=== PATIENT | female | born 1965 | race Caucasian/White ===

== ENCOUNTER → 2021-02-28 | Outpatient (CLI) | payer OTHER ==
--- NOTE | 2021-02-28 11:09 | REPVR ---
PROCEDURE INFORMATION: Exam: CT Temporal Bones Without Contrast. Exam date and time: 02/28/2021 10:27 AM Age: 55 years old Clinical indication: Condition or disease; Other: Unspecified perferation tampanic mem TECHNIQUE: Imaging protocol: Computed tomography images of the temporal bones without contrast. Radiation optimization: All CT scans at this facility use at least one of these dose optimization techniques: automated exposure control; mA and/or kV adjustment per patient size (includes targeted exams where dose is matched to clinical indication); or iterative reconstruction. COMPARISON: No relevant prior studies available. FINDINGS: Right inner ear: Normal. Right ossicles and middle ear: There is mild retraction of the right tympanic membrane with minimal soft tissue density in the lower middle ear chamber. No destructive changes are seen. Right external auditory canal: Normal. Right facial nerve canal: Normal. Right jugular foramen: No jugular dehiscence. Right carotid canal: No aberrant carotid canal. Right mastoid air cells: There is opacification of scattered mastoid air cells on the right. Left inner ear: Normal. Left ossicles and middle ear: There is moderate retraction of the left tympanic membrane. There is extensive soft tissue density in the left middle ear extending superiorly to the attic. The ossicles are intact. The left scutum is intact. Left external auditory canal: Normal. Left facial nerve canal: Normal. Left jugular foramen: No jugular dehiscence. Left carotid canal: No aberrant carotid canal. Left mastoid air cells: There is extensive opacification of the left mastoid air cells without destructive bony changes. Soft tissues: Unremarkable. IMPRESSION: 1. There is mild retraction of the right tympanic membrane with minimal soft tissue density in the lower middle ear chamber. No destructive changes are seen. 2. There is moderate retraction of the left tympanic membrane. There is extensive soft tissue density in the left middle ear extending superiorly to the attic. The ossicles are intact. 3. The left scutum is intact. Electronically signed by: Matt Nash On 02/28/2021 11:08:44 AM
== END ==
LOC: M RAD 10:00
PROVIDERS: ATTEND Otolaryngology
DX: H72.92 Unspecified perforation of tympanic membrane, left ear (principal)